=== PATIENT | male | born 1960 | race African-American/Black ===

== ENCOUNTER 2023-06-20 11:20 | Emergency (ER) | payer OTHER ==
[~2023-06-20] VITALS: Ht 180.3 cm; Wt 108.0 kg
[2023-06-20 11:22] VITALS: BP 134/85; PULSE 76; RESP 16; O2SAT 98
[2023-06-20 11:24] VITALS: TEMP 98
[2023-06-20] MEDS ORDERED: ACETAMINOPHEN 325MG TABLET PO STA (11:24)
[2023-06-20] MEDS ORDERED: TOPUD PO (12:08)
== END 2023-06-20 12:52 | disposition home or self-care (01) ==
LOC: ER 11:20
DX: S29.9XXA Unspecified injury of thorax, initial encounter (principal); I10 Essential (primary) hypertension; V49.9XXA Car occupant (driver) (passenger) injured in unspecified traffic accident, initial encounter; Y93.89 Activity, other specified; Y92.89 Other specified places as the place of occurrence of the external cause; Y99.8 Other external cause status
CPT/HCPCS: 71045; 99283